=== PATIENT | male | born 1950 | race Two or more races ===

== ENCOUNTER 2018-11-12 11:43 | Emergency (ER) | payer MEDICARE, OTHER ==
[~2018-11-12] VITALS: Ht 172.7 cm; Wt 81.6 kg
[2018-11-12 11:52] VITALS: BP 119/74
--- NOTE | 2018-11-12 12:00 | NUR ---
ED Nurse Note: Patient walked into ED, per patient, he fell when he was walking on the street because of the bump on the street 1 hour prior to arrival, patient shows bilateral knee pain, left shouldr pain, patient has small abrasion on the the right knee, right elbow, bleeding controlled. patient denies any head injury, nor LOC. patient is alert awake x4 ambulatory.
--- NOTE | 2018-11-12 12:04 | Emergency Room Report ---
History of Present Illness General Chief Complaint: Multiple Trauma/Fall Source: Patient Present Illness HPI Patient reports that he was walking in his usual health this happened about 2 hours ago when he tripped on the curb there was some anomaly to the sidewalk Patient fell forward injuring bilateral knee right elbow left shoulder Denies any head trauma denies any chest pain or short of breath denies any lapse of consciousness patient has increased pain to bilateral knee with any attempts of ambulation denies any midline back pain Allergies: Coded Allergies: No Known Allergies (Unverified , 11/12/18) Patient History Past Medical History: see triage record Pertinent Family History: none Reviewed Nursing Documentation: PMH: Agreed; PSxH: Agreed Nursing Documentation-PMH Past Medical History: No History, Except For Hx Cardiac Problems: Yes - High cholesterol Hx Diabetes: Yes - type 2 Review of Systems All Other Systems: negative except mentioned in HPI Physical Exam Vital Signs Date Time Temp Pulse Resp B/P (MAP) Pulse Ox O2 Delivery O2 Flow Rate FiO2 11/12/18 11:52 98.2 88 20 119/74 96 Room Air Sp02 EP Interpretation: reviewed, normal General Appearance: no apparent distress Head: normocephalic, atraumatic Eyes: bilateral eye PERRL, bilateral eye EOMI ENT: normal pharynx Neck: supple, no meningismus Respiratory: lungs clear, no retraction, no accessory muscle use Cardiovascular #1: regular rate, rhythm Gastrointestinal: non tender, soft Musculoskeletal: other - Swelling to the bilateral knee abrasions on bilateral knees, patient has discomfort with attempting to fully straighten the knee bilaterally, right elbow is uncomfortable on palpation no obvious edema however abrasion noted tender on left shoulder Neurologic: alert, oriented x3, responsive Skin: other - As above Lymphatic: no adenopathy Medical Decision Making Diagnostic Impression: Primary Impression: Contusion Additional Impressions: Abrasion Multiple injuries due to trauma ER Course Given the patient's history and presentation, given the evaluation patient had multiple imaging obtained I spoke with the radiologist does not see any obvious acute fracture Patient remains mobile The wounds had appropriate ointment applied and patient stable for close outpatient follow-up Other X-Ray Diagnostic Results Other X-Ray Diagnostic Results #1: X-Ray ordered: Right knee # of Views/Limited Vs Complete: 3 View Indication: Pain EP Interpretation: Yes Interpretation: no dislocation, no soft tissue swelling, no fractures Impression: No acute disease Electronically Signed by: Alexey Cole DO Other X-Ray Diagnostic Results #2: X-Ray ordered: Left knee # of Views/Limited Vs Complete: 3 View Indication: Pain EP Interpretation: Yes Interpretation: no dislocation, no soft tissue swelling, no fractures Impression: No acute disease Electronically Signed by: Alexey Cole DO Other X-Ray Diagnostic Results #3: X-Ray ordered: Left shoulder # of Views/Limited Vs Complete: 3 View Indication: Pain EP Interpretation: Yes Interpretation: no dislocation, no soft tissue swelling, no fractures Impression: No acute disease Electronically Signed by: Alexey Cole DO Last Vital Signs Date Time Temp Pulse Resp B/P (MAP) Pulse Ox O2 Delivery O2 Flow Rate FiO2 11/12/18 11:52 98.2 88 20 119/74 96 Room Air Status: improved Disposition: HOME, SELF-CARE Condition: Improved Scripts Ibuprofen* (MOTRIN*) 600 Mg Tablet 600 MG ORAL Q8H PRN for For Pain, #20 TAB 0 Refills Prov: Alexey Cole DO 11/12/18 Additional Instructions: Patient is provided with the discharge instructions notified to follow up with primary doctor in the next 2-3 days otherwise return to the er with any worsening symptoms. Please note that this report is being documented using [employer] technology. This can lead to erroneous entry secondary to incorrect interpretation by the dictating instrument. Alexey Cole DO Nov 12, 2018 12:04
--- NOTE | 2018-11-12 12:20 | NUR ---
ED Nurse Note: patient is getting xray done
[2018-11-12] MEDS ORDERED: Bacitracin Oint UD TOPIC ONE (13:00)
[2018-11-12] MEDS ORDERED: IBUPROFEN600 MG ORAL (14:05)
[2018-11-12 14:14] VITALS: BP 119/74
--- NOTE | 2018-11-12 14:14 | NUR ---
ER DISCHARGE NOTE: Patient is cleared to be discharged per ERMD, pt is aox4, on room air, with stable vital signs. pt was given dc and prescription instructions, pt was able to verbalize understanding, pt id band removed without complications. pt is able to ambulate with steady gait. pt took all belongings.
--- NOTE | 2018-11-12 14:22 | Diagnostic Imaging Report ---
Indication: Trauma, pain Technique: 3 views of the right knee Comparison: None Findings: There are multiple large patellar osteophytes. No definite acute fractures or dislocations. Joint spaces are preserved. No suprapatellar effusion. Impression: No acute bony trauma
--- NOTE | 2018-11-12 14:23 | Diagnostic Imaging Report ---
Indication: Trauma, pain Technique: 3 views of the left knee Comparison: None Findings: No acute fractures. No dislocations. No suprapatellar effusion. There are large patellar osteophytes. The joint spaces are preserved Impression: No acute bony trauma Degenerative changes as described
--- NOTE | 2018-11-12 14:24 | Diagnostic Imaging Report ---
Indication: Pain, trauma Technique: 3 views of the left shoulder Comparison: none Findings: No acute fractures. No dislocations. The joint spaces are preserved. There are acromial spurs noted. Impression: No acute process
== END 2018-11-12 14:13 | disposition home or self-care (01) ==
LOC: EMR 12:15
DX: S80.212A Abrasion, left knee, initial encounter (principal); S80.211A Abrasion, right knee, initial encounter; S40.212A Abrasion of left shoulder, initial encounter; M25.521 Pain in right elbow; E11.9 Type 2 diabetes mellitus without complications; E78.00 Pure hypercholesterolemia, unspecified; W01.0XXA Fall on same level from slipping, tripping and stumbling without subsequent striking against object, initial encounter; Y92.410 Unspecified street and highway as the place of occurrence of the external cause
CPT/HCPCS: 99284